=== PATIENT | male | born 1965 | race Caucasian/White ===

== ENCOUNTER 2019-01-24 10:10 | Outpatient (CLI) | payer OTHER | END 2019-01-24 13:40 | disposition home or self-care (01) | LOC: LAB 10:10 | DX: E11.9 Type 2 diabetes mellitus without complications (principal); E03.8 Other specified hypothyroidism; E78.2 Mixed hyperlipidemia; I10 Essential (primary) hypertension; M81.0 Age-related osteoporosis without current pathological fracture; Z12.11 Encounter for screening for malignant neoplasm of colon; N40.0 Benign prostatic hyperplasia without lower urinary tract symptoms ==

== ENCOUNTER 2019-01-24 12:38 | Outpatient (CLI) | payer OTHER | END 2019-01-24 12:44 | disposition home or self-care (01) | LOC: RAD 12:38 | DX: M19.90 Unspecified osteoarthritis, unspecified site (principal) ==

== ENCOUNTER 2019-02-01 07:07 | Outpatient (CLI) | payer OTHER | END 2019-02-01 07:13 | disposition home or self-care (01) | LOC: TOM 07:07 | DX: R10.9 Unspecified abdominal pain (principal) | CPT/HCPCS: 74177; Q9965 ==

== ENCOUNTER 2019-08-05 09:35 | Day surgery (SDC) | payer OTHER | END 2019-08-05 16:40 | disposition home or self-care (01) | LOC: AMB-ENDOS 09:35 | DX: K29.30 Chronic superficial gastritis without bleeding (principal); D12.0 Benign neoplasm of cecum; K57.30 Diverticulosis of large intestine without perforation or abscess without bleeding ==